=== PATIENT | female | born 1990 | race Caucasian/White ===

== ENCOUNTER 2016-06-30 13:30 | Emergency (ER) | payer MEDICAID ==
[~2016-06-30] VITALS: Ht 165.1 cm; Wt 44.9 kg
[~2016-06-30 13:30] MED LIST: IBUP-1222 PO; ONDA4TAB10 PO; OXYC-302; OXYC-302 PO; PNV1TABL47 PO
[2016-06-30 13:33] VITALS: BP 115/75
[2016-06-30] MEDS ORDERED: KETOROLAC 30 MG/1 ML IM ONE (14:00)
[2016-06-30 14:42] LABS: BLOOD UREA NITROGEN 8 mg/dL (7-18)
[2016-06-30 14:49] LABS: IS PT STATUS REG ER OR PRE ER? YES
== END 2016-06-30 16:49 | disposition left against medical advice (07) ==
LOC: ED 16:43
DX: R00.8 Other abnormalities of heart beat (principal); Z53.21 Procedure and treatment not carried out due to patient leaving prior to being seen by health care provider
CPT/HCPCS: 36415; 71010; 80048; 82040; 84484; 85025; 85379; 93005; 99281

== ENCOUNTER 2016-07-01 19:10 | Inpatient (IN) | payer MEDICAID ==
[~2016-07-01] VITALS: Ht 165.1 cm; Wt 46.7 kg
[2016-07-01] MEDS ORDERED: SODIUM CHLORIDE 0.9% 1,000 ML IV ONE (19:57)
[2016-07-01] MEDS ORDERED: SODIUM CHLORIDE 0.9% 1,000ML IVBOLUS ONE ×2 (20:00→22:00)
[2016-07-01] MEDS ORDERED: MORPHINE SULFATE 4 MG/ML, 1ML IVPush PRN (20:00)
[2016-07-01] MEDS ORDERED: ONDANSETRON 2MG/ML, 2ML IVPush ONE (20:00)
[2016-07-01] MEDS ORDERED: MORPHINE SULFATE 4 MG/ML, 1ML ONE (20:07)
[2016-07-01] MEDS ORDERED: ONDANSETRON 2MG/ML, 2ML ONE (20:07)
[2016-07-01 20:35] LABS: BLOOD UREA NITROGEN 13 mg/dL (7-18)
[2016-07-01] MEDS ORDERED: ACETAMINOPHEN 325 MG TABLET PO ONE (21:00)
[2016-07-01] MEDS ORDERED: KETOROLAC 30 MG/1 ML IVPush ONE (21:00)
[2016-07-01] MEDS ORDERED: KETOROLAC 30 MG/1 ML ONE (21:22)
[2016-07-01] MEDS ORDERED: ACETAMINOPHEN 325 MG TABLET ONE (21:22)
[2016-07-01] MEDS ORDERED: LEVOFLOXACIN/PMX 500MG/100ML 100 ML IV ONE (22:00)
[2016-07-01] MEDS ORDERED: POLYETHYLENE GLYCOL 17 GM PACKET PO PRN (22:00)
[2016-07-01] MEDS ORDERED: morphine SULFATE 10 MG/ML, 1ML IVPush PRN (22:00)
[2016-07-01] MEDS ORDERED: KETOROLAC 30 MG/1 ML IVPush PRN (22:00)
[2016-07-01] MEDS ORDERED: BISACODYL 10 MG SUPP PR PRN (22:00)
[2016-07-01] MEDS ORDERED: ONDANSETRON 2MG/ML, 2ML IVPush PRN (22:00)
[2016-07-01] MEDS ORDERED: LEVOFLOXACIN/PMX 500MG/100ML 100 ML ONE (22:14)
[2016-07-01 22:19] LABS: TOTAL IRON BINDING CAPACITY 544 mcg/dL (250-450)
[2016-07-02] VITALS (10 sets, daily range): BP systolic 86–103; BP diastolic 55–74
[2016-07-02] MEDS: SODIUM CHLORIDE 0.9% 1,000 ML IV SCH ×3 (01:09→23:39)
[2016-07-02] MEDS ORDERED: SODIUM CHLORIDE 0.9%, 500ML IVBOLUS ONE (02:00)
[2016-07-02] MEDS: HEPARIN 5,000 UNITS/ML, 1ML SQ SCH ×3 (04:37→20:49)
[2016-07-02 06:47] LABS: ASPARTATE AMINO TRANSFERASE 9 U/L (15-37); BLOOD UREA NITROGEN 12 mg/dL (7-18)
[2016-07-02] MEDS: SENNA/DOCUSATE TABLET PO SCH (08:41)
[2016-07-02] MEDS: ACETAMINOPHEN 325 MG TABLET PO PRN ×3 (08:41→20:49)
[2016-07-02] MEDS: PRENATAL VIT/IRON/FA 1 EACH TABLET PO SCH (08:41)
[2016-07-02 09:43] LABS: IS PT STATUS REG ER OR PRE ER? NO
[2016-07-02] MEDS ORDERED: SODIUM CHLORIDE 0.9% 1,000ML IVBOLUS ONE (11:30)
[2016-07-02] MEDS ORDERED: POTASSIUM CHLORIDE 20 MEQ in SODIUM CHLORIDE 0.9% 1,000 ML IV SCH (21:58)
[2016-07-02] MEDS: LEVOFLOXACIN/PMX 500MG/100ML 100 ML IV SCH ×2 (23:39)
[2016-07-03 01:47] VITALS: BP 117/64
[2016-07-03] MEDS: HEPARIN 5,000 UNITS/ML, 1ML SQ SCH ×3 (04:50→20:00)
[2016-07-03] MEDS: ACETAMINOPHEN 325 MG TABLET PO PRN (05:04)
[2016-07-03 05:31] LABS: BLOOD UREA NITROGEN 3 mg/dL (7-18)
[2016-07-03 06:45] VITALS: BP 97/58
[2016-07-03] MEDS: POTASSIUM CHLORIDE 20 MEQ TAB.ER.PRT PO SCH ×2 (09:39→18:05)
[2016-07-03] MEDS: PRENATAL VIT/IRON/FA 1 EACH TABLET PO SCH (09:39)
[2016-07-03] MEDS: SENNA/DOCUSATE TABLET PO SCH (09:40)
[2016-07-03] MEDS: SODIUM CHLORIDE 0.9% 1,000 ML IV SCH (09:41)
[2016-07-03 15:08] VITALS: BP 96/81
[2016-07-03 18:56] VITALS: BP 101/65
[2016-07-03] MEDS: LEVOFLOXACIN/PMX 500MG/100ML 100 ML IV SCH (21:46)
[2016-07-03] MEDS ORDERED: SODIUM CHLORIDE 0.9% 1,000 ML IV SCH (21:58)
[2016-07-04 02:03] VITALS: BP 95/52
[2016-07-04] MEDS: HEPARIN 5,000 UNITS/ML, 1ML SQ SCH ×2 (04:00→12:00)
[2016-07-04 06:35] VITALS: BP 92/54
[2016-07-04 06:45] LABS: BLOOD UREA NITROGEN 6 mg/dL (7-18)
[2016-07-04] MEDS: SENNA/DOCUSATE TABLET PO SCH (08:10)
[2016-07-04] MEDS: PRENATAL VIT/IRON/FA 1 EACH TABLET PO SCH (08:10)
[2016-07-04] MEDS ORDERED: LEVOFLOXACIN 750 MG TABLET PO SCH (09:30)
[2016-07-04] MEDS ORDERED: LEVO750T26 PO (11:00)
[2016-07-04] MEDS ORDERED: PREN1TAB14 PO (11:00)
== END 2016-07-04 13:09 | disposition home or self-care (01) | DRG 872 ==
LOC: ED 20:32 → EDIP 21:35 → 3NE 07-02
PROVIDERS: ADMIT Internal Medicine; ATTEND Internal Medicine
DX: A41.9 Sepsis, unspecified organism (principal); E87.1 Hypo-osmolality and hyponatremia; N10 Acute pyelonephritis; Z82.49 Family history of ischemic heart disease and other diseases of the circulatory system; D50.9 Iron deficiency anemia, unspecified; Z88.1 Allergy status to other antibiotic agents
CPT/HCPCS: 36415; 71010; 80048; 80053; 81001; 82040; 82728; 83540; 83550; 83605; 84145; 84484; 84703; 85025; 87040; 87077; 87086; 87186; 93005; 96361; 96374; 96375; J1644; J1885; J1956; J2405; J2270; J7030; J7040

== ENCOUNTER 2016-07-11 06:08 | Emergency (ER) | payer MEDICAID ==
[~2016-07-11] VITALS: Ht 165.1 cm; Wt 44.9 kg
[~2016-07-11 06:08] MED LIST changes: +LEVO750T26 PO; +PREN1TAB14 PO
[2016-07-11] MEDS ORDERED: SODIUM CHLORIDE 0.9% 1,000 ML IV ONE (06:32)
[2016-07-11] MEDS ORDERED: ONDANSETRON 2MG/ML, 2ML ONE (06:36)
[2016-07-11] MEDS ORDERED: FAMOTIDINE 20 MG/2 ML ONE (06:36)
[2016-07-11] MEDS ORDERED: FAMOTIDINE 20 MG/2 ML IVP ONE (07:00)
[2016-07-11] MEDS ORDERED: SODIUM CHLORIDE 0.9% 1,000ML IVBOLUS ONE (07:00)
[2016-07-11] MEDS ORDERED: ONDANSETRON 2MG/ML, 2ML IVPush ONE (07:00)
[2016-07-11 07:26] LABS: ASPARTATE AMINO TRANSFERASE 11 U/L (15-37); BLOOD UREA NITROGEN 14 mg/dL (7-18)
[2016-07-11 08:20] VITALS: BP 102/61
[2016-07-11] MEDS ORDERED: LIDOCAINE 1%, 20ML SQ ONE (09:30)
== END 2016-07-11 09:24 | disposition home or self-care (01) ==
LOC: ED 06:25
DX: K85.90 Acute pancreatitis without necrosis or infection, unspecified (principal)
CPT/HCPCS: 36415; 76700; 80053; 81003; 83605; 83690; 84145; 84703; 85025; 87040; 96374; 96375; 99285; J2405; J7030; S0028

== ENCOUNTER 2016-08-01 17:12 | Emergency (ER) | payer MEDICAID ==
[~2016-08-01] VITALS: Ht 165.1 cm; Wt 45.8 kg
[2016-08-01 18:35] LABS: BLOOD UREA NITROGEN 15 mg/dL (7-18)
[2016-08-01 18:42] LABS: ASPARTATE AMINO TRANSFERASE 16 U/L (15-37)
[2016-08-01 18:44] LABS: IS PT STATUS REG ER OR PRE ER? YES
[2016-08-01 19:27] VITALS: BP 105/54
== END 2016-08-01 19:36 | disposition home or self-care (01) ==
LOC: ED 19:34
DX: J90 Pleural effusion, not elsewhere classified (principal)
CPT/HCPCS: 36415; 71020; 80053; 81003; 83690; 84484; 85025; 85379; 93005; 99285

== ENCOUNTER 2016-08-20 14:43 | Emergency (ER) | payer MEDICAID ==
[~2016-08-20] VITALS: Ht 165.1 cm; Wt 45.9 kg
[2016-08-20 14:44] VITALS: BP 114/61
[2016-08-20 17:50] LABS: HIV 1&2 ANTIBODY SCREEN Nonreactive (Nonreactive); HIV-1 p24 ANTIGEN Nonreactive (Nonreactive)
[2016-08-20 18:43] LABS: HEPATITIS C VIRUS ANTIBODY Nonreactive (Nonreactive)
== END 2016-08-20 17:36 | disposition home or self-care (01) ==
LOC: ED 17:29
DX: Z20.2 Contact with and (suspected) exposure to infections with a predominantly sexual mode of transmission (principal)
CPT/HCPCS: 36415; 80074; 86703; 86790; 87899; 99284; G0435

== ENCOUNTER 2016-08-23 15:17 | Emergency (ER) | payer MEDICAID ==
[~2016-08-23] VITALS: Ht 165.1 cm; Wt 45.0 kg
[2016-08-23 15:25] VITALS: BP 124/61
== END 2016-08-23 16:33 | disposition home or self-care (01) ==
LOC: ED 16:25
DX: Z00.8 Encounter for other general examination (principal)
CPT/HCPCS: 99281

== ENCOUNTER 2016-09-03 15:01 | Emergency (ER) | payer MEDICAID ==
[~2016-09-03] VITALS: Ht 165.1 cm; Wt 44.6 kg
[2016-09-03 15:39] VITALS: BP 111/74
[2016-09-03] MEDS ORDERED: KETOROLAC 30 MG/1 ML ONE (15:50)
[2016-09-03] MEDS ORDERED: KETOROLAC 30 MG/1 ML IM ONE (16:00)
== END 2016-09-03 16:26 | disposition home or self-care (01) ==
LOC: ED 16:08
DX: S29.011A Strain of muscle and tendon of front wall of thorax, initial encounter (principal); X58.XXXA Exposure to other specified factors, initial encounter; Y93.89 Activity, other specified; Y92.098 Other place in other non-institutional residence as the place of occurrence of the external cause; Y99.8 Other external cause status
CPT/HCPCS: 96372; J1885

== ENCOUNTER 2016-09-26 14:55 | Emergency (ER) | payer MEDICAID ==
[~2016-09-26] VITALS: Ht 165.1 cm; Wt 42.0 kg
[2016-09-26] MEDS ORDERED: SODIUM CHLORIDE 0.9% 1,000ML IVBOLUS ONE (15:30)
[2016-09-26] MEDS ORDERED: ONDANSETRON 2MG/ML, 2ML IVPush ONE (15:30)
[2016-09-26] MEDS ORDERED: SODIUM CHLORIDE FLUSH 10ML SYR IVF ONE (15:30)
[2016-09-26] MEDS ORDERED: ONDANSETRON ODT 4 MG ONE (15:44)
[2016-09-26] MEDS ORDERED: ONDANSETRON ODT 4 MG PO ONE (16:00)
[2016-09-26 16:03] LABS: HEMATOCRIT 33.8 % (34.6-47.8); HEMOGLOBIN 11.1 g/dL (11.7-16.4); WHITE BLOOD COUNT 4.6 x10^3/uL (3.4-10)
[2016-09-26 16:15] LABS: BLOOD UREA NITROGEN 8 mg/dL (7-18)
[2016-09-26] MEDS ORDERED: POTASSIUM CHLORIDE 20 MEQ TAB.ER.PRT PO ONE (17:00)
[2016-09-26] MEDS ORDERED: FAMOTIDINE 20 MG TABLET PO ONE (17:00)
[2016-09-26] MEDS ORDERED: MAALOX/HYOSCYAMINE/LIDOCAINE 45 ML BTL PO ONE (17:00)
[2016-09-26 18:00] VITALS: BP 112/70
== END 2016-09-26 18:31 | disposition left against medical advice (07) ==
LOC: ED 15:38
DX: O26.891 Other specified pregnancy related conditions, first trimester (principal); O21.9 Vomiting of pregnancy, unspecified; Z3A.01 Less than 8 weeks gestation of pregnancy
CPT/HCPCS: 36415; 76830; 80048; 81003; 82040; 84702; 84703; 85025; 99285

== ENCOUNTER 2016-10-06 11:54 | Emergency (ER) | payer MEDICAID ==
[~2016-10-06] VITALS: Ht 165.1 cm; Wt 44.1 kg
[2016-10-06 12:44] LABS: HEMATOCRIT 37.6 % (34.6-47.8); HEMOGLOBIN 12.1 g/dL (11.7-16.4); WHITE BLOOD COUNT 7.9 x10^3/uL (3.4-10)
[2016-10-06 12:53] LABS: BLOOD UREA NITROGEN 11 mg/dL (7-18)
[2016-10-06 13:51] VITALS: BP 106/55
== END 2016-10-06 13:52 | disposition home or self-care (01) ==
LOC: ED 12:31
DX: Z32.01 Encounter for pregnancy test, result positive (principal); R10.2 Pelvic and perineal pain
CPT/HCPCS: 36415; 76830; 80048; 81003; 82040; 84702; 85025

== ENCOUNTER 2016-11-05 18:57 | Emergency (ER) | payer MEDICAID ==
[~2016-11-05] VITALS: Ht 160 cm; Wt 45.3 kg
[2016-11-05 19:30] LABS: HEMATOCRIT 35.3 % (34.6-47.8); HEMOGLOBIN 11.3 g/dL (11.7-16.4)
[2016-11-05 21:18] VITALS: BP 119/74
== END 2016-11-05 21:42 | disposition home or self-care (01) ==
LOC: ED 21:01
DX: O23.11 Infections of bladder in pregnancy, first trimester (principal); Z3A.10 10 weeks gestation of pregnancy
CPT/HCPCS: 36415; 76801; 81001; 84702; 85025; 86901; 87086; 99285

== ENCOUNTER 2017-01-26 19:11 | Outpatient (CLI) | payer MEDICAID ==
[~2017-01-26] VITALS: Ht 162.6 cm; Wt 55.0 kg
[~2017-01-26 19:11] MED LIST changes: +PREN1TAB60 PO
[2017-01-26] MEDS ORDERED: LACTATED RINGERS 1,000 ML IV SCH (19:30)
[2017-01-26] MEDS ORDERED: LACTATED RINGERS 1,000 ML IVBOLUS ONE (19:30)
[2017-01-26] MEDS ORDERED: PLEASE ENTER HEIGHT AND WEIGHT MC SCH (20:00)
[2017-01-26] MEDS ORDERED: GUAIFENESIN 100 MG/5 ML, 5ML UDC PO PRN (21:00)
== END 2017-01-26 23:10 | disposition home or self-care (01) ==
LOC: LDOP 19:11
PROVIDERS: ATTEND Obstetrics & Gynecology Maternal & Fetal Medicine
DX: O26.892 Other specified pregnancy related conditions, second trimester (principal); R10.9 Unspecified abdominal pain; R05 Cough; Z3A.19 19 weeks gestation of pregnancy
CPT/HCPCS: 59025; 76815; 96360; 96361; 99211; J7120; G0463

== ENCOUNTER 2018-05-24 14:14 | Emergency (ER) | payer MEDICAID ==
[~2018-05-24] VITALS: Ht 162.6 cm; Wt 41.2 kg
[2018-05-24 14:59] VITALS: BP 111/71
--- NOTE | 2018-05-24 14:59 | NUR ---
NA [id number]
[2018-05-24] MEDS ORDERED: CEFTRIAXONE 250 MG IM ONE (15:30)
[2018-05-24] MEDS ORDERED: ONDANSETRON ODT 4 MG PO ONE (15:30)
--- NOTE | 2018-05-24 19:35 | NUR ---
NO ANSWER [id number]
== END 2018-05-24 19:38 | disposition left against medical advice (07) ==
LOC: ED 19:32
DX: Z20.2 Contact with and (suspected) exposure to infections with a predominantly sexual mode of transmission (principal)
CPT/HCPCS: 99281; 99284

== ENCOUNTER 2019-05-10 10:17 | Emergency (ER) | payer MEDICAID ==
[~2019-05-10] VITALS: Ht 162.6 cm; Wt 46.1 kg
[2019-05-10 10:36] VITALS: BP 121/76
--- NOTE | 2019-05-10 10:52 | NUR ---
PT AMBULATED TO ROOM 23 WITH A STEADY GAIT. SHE IS CHANGING INTO A GOWN FOR MD ASSESSMENT. I WILL MONITOR AND TREAT THIS PT NEEDED WELL PRN.
[2019-05-10] MEDS ORDERED: ALBUTEROL SULFATE 2.5 MG/3 ML NEB ONE (11:08)
[2019-05-10] MEDS ORDERED: ACETAMINOPHEN 500 MG TABLET ONE (11:17)
--- NOTE | 2019-05-10 11:27 | NUR ---
I SPOKE WITH [place] IN RX. I AM ANTICIPTING DELIVERY OF ALBUTEROL MDI.
[2019-05-10] MEDS ORDERED: ACETAMINOPHEN 500 MG TABLET PO ONE (11:30)
[2019-05-10] MEDS ORDERED: ALBUTEROL HFA 90 MCG/SPRAY INH PRN (11:30)
--- NOTE | 2019-05-10 12:14 | NUR ---
PT SELF ADMINISTERED ALBUTEROL W DEMONSTRATION TO ME.
[2019-05-10 12:20] LABS: ALBUMIN 3.8 g/dL (3.4-5.0); ANION GAP 7 mmol/L (5-15); CALCIUM 8.8 mg/dL (8.5-10.1); CHLORIDE 109 mmol/L (98-107); CREATININE 0.75 mg/dL (0.55-1.02)
[2019-05-10 12:30] LABS: MEAN CORPUSCULAR HEMOGLOBIN 22.9 pg (27.0-34.8); MEAN CORPUSCULAR VOLUME 71.7 fL (80-100); PLATELET COUNT 369 x10^3/uL (130-400); RED BLOOD COUNT 5.29 x10^6/uL (3.82-5.3); RED CELL DISTRIBUTION WIDTH 22.4 % (9.6-15.2)
[2019-05-10 12:35] LABS: BASOPHILS # (AUTO) 0.03 x10^3/uL (0-0.1); BASOPHILS % (AUTO) 0 % (0-1); EOSINOPHILS # (AUTO) 1.55 x10^3/uL (0-0.4); EOSINOPHILS % (AUTO) 17 % (1-7); LYMPHOCYTES % (AUTO) 21 % (22-44); MD MORPH REVIEW ONLY; MONOCYTES % (AUTO) 4 % (2-9); NEUTROPHILS # (AUTO) 5.17 x10^3/uL (1.8-6.8); NEUTROPHILS % (AUTO) 57 % (42-75)
[2019-05-10 12:36] LABS: MICROCYTOSIS 1+
[2019-05-10 12:37] LABS: <PLATELET ESTIMATE> ADEQUATE; <PLT MORPHOLOGY> NORMAL PLT MORPH; ANISOCYTOSIS 1+
--- NOTE | 2019-05-10 13:05 | NUR ---
SBAR RPT REC'D FROM CHAITANYA EDDY. PT CARE ASSUMED.
[2019-05-10 13:44] LABS: RAPID INFLUENZA A Negative (Negative); RAPID INFLUENZA B Negative (Negative)
--- NOTE | 2019-05-10 13:58 | NUR ---
Patient/Caregiver given discharge instructions and they have confirmed that they understand the instructions. Patient ambulatory with steady gait. TAXI VOUCHER PROVIDED
== END 2019-05-12 13:05 | disposition home or self-care (01) ==
LOC: ED 10:53
DX: R06.00 Dyspnea, unspecified (principal); Z20.828 Contact with and (suspected) exposure to other viral communicable diseases; J00 Acute nasopharyngitis [common cold]; R07.9 Chest pain, unspecified
CPT/HCPCS: 36415; 71045; 80048; 82040; 83605; 84145; 85025; 87040; 87400; 93005; 99285

== ENCOUNTER 2019-05-12 10:40 | Emergency (ER) | payer MEDICAID ==
[~2019-05-12] VITALS: Ht 162.6 cm; Wt 46.3 kg
--- NOTE | 2019-05-12 11:14 | NUR ---
PT BIB EMS FOR RIGTH SHOULDER PAIN. PT DENIES TRAUMA OR INJURY TO SHOULDER. PT WAS RECENTLY HOSPITALIZED, NEGATIVE COVID. PT HAS COUGH AND CHEST PAIN FROM SHOULDER. PT STATES IT RADIATES TO CHEST , SCAPULA AND RIGHT ARM. PT GIVEN FENTANYL IN ROUTE. AMBULATORY CARE COORDINATOR IN PLACE. VSS
[2019-05-12] MEDS ORDERED: HYDROcodone/APAP 5/325 TABLET ONE (11:23)
[2019-05-12] MEDS ORDERED: HYDROcodone/APAP 5/325 TABLET PO ONE (11:30)
--- NOTE | 2019-05-12 12:00 | NUR ---
medicated for pain. vss. no needs a this time
[2019-05-12 12:01] LABS: BASOPHILS # (AUTO) 0.05 x10^3/uL (0-0.1); BASOPHILS % (AUTO) 1 % (0-1); EOSINOPHILS # (AUTO) 1.36 x10^3/uL (0-0.4); EOSINOPHILS % (AUTO) 17 % (1-7); LYMPHOCYTES # (AUTO) 1.76 x10^3/uL (1-3.4); LYMPHOCYTES % (AUTO) 22 % (22-44); MD NO; MEAN CORPUSCULAR HEMOGLOBIN 22.8 pg (27.0-34.8); MEAN CORPUSCULAR HGB CONC 31.6 g/dL (32.4-35.8); MEAN CORPUSCULAR VOLUME 72.2 fL (80-100); MEAN PLATELET VOLUME 8.4 fL (7.4-10.4); MONOCYTES # (AUTO) 0.39 x10^3/uL (0.2-0.8); MONOCYTES % (AUTO) 5 % (2-9); NEUTROPHILS # (AUTO) 4.59 x10^3/uL (1.8-6.8); NEUTROPHILS % (AUTO) 56 % (42-75); PLATELET COUNT 335 x10^3/uL (130-400); RED BLOOD COUNT 4.89 x10^6/uL (3.82-5.3)
[2019-05-12 12:04] LABS: ALBUMIN 3.9 g/dL (3.4-5.0); ANION GAP 4 mmol/L (5-15); CALCIUM 8.8 mg/dL (8.5-10.1); CHLORIDE 111 mmol/L (98-107); CREATININE 0.72 mg/dL (0.55-1.02)
[2019-05-12] MEDS ORDERED: ONDANSETRON ODT 4 MG ONE (12:29)
[2019-05-12] MEDS ORDERED: ONDANSETRON ODT 4 MG PO ONE (12:30)
--- NOTE | 2019-05-12 12:38 | NUR ---
Patient/Caregiver given discharge instructions and they have confirmed that they understand the instructions. Patient ambulatory with steady gait.
[2019-05-12 12:39] VITALS: BP 110/78
--- NOTE | 2019-05-12 13:05 | NUR ---
PT IS RESIDENT AT [facility], RESIDENT NURSE SHERI ORTEGA WILL NOT ACCEPT HER BACK BECAUSE OF COVID CONCERN EVEN THOUGH PT TESTED NEGATIVE. [employer]S TENNIS COACH CALLED
--- NOTE | 2019-05-12 15:33 | NUR ---
Patient given discharge instructions and they have confirmed that they understand the instructions. Patient ambulatory with steady gait and in no distress.
--- NOTE | 2019-05-12 15:33 | NUR ---
Taxi voucher given to patient for safe ride back home.
== END 2019-05-12 12:58 | disposition home or self-care (01) ==
LOC: ED 10:42
DX: R07.89 Other chest pain (principal); M25.511 Pain in right shoulder
CPT/HCPCS: 36415; 71045; 80048; 82040; 85025; 85379; 99284; Q0162

== ENCOUNTER 2020-06-19 09:45 | Emergency (ER) | payer MEDICAID ==
[~2020-06-19] VITALS: Ht 162.6 cm; Wt 46.3 kg
[~2020-06-19 09:45] MED LIST changes: -OXYC-302; -OXYC-302 PO; +OXYC1TAB14; +OXYC1TAB14 PO
[2020-06-19] MEDS ORDERED: ALBU90AE INH (10:11)
--- NOTE | 2020-06-19 10:11 | NUR ---
ASTHMA EXACERBATION X 2 WEEKS. SOB AT REST. PERSISTENT DRY COUGH. PROAIR NOT HELPING NO FEVERS/ACHES/CHANGE IN TASTE/SMELL VSS- HOWEVER WITH WHEEZES TO ALL MCDONOUGH
--- NOTE | 2020-06-19 10:43 | NUR ---
DR NG AT BEDSIDE TO EVAL PT
[2020-06-19] MEDS ORDERED: ALBUTEROL/IPRATROPIUM 2.5MG/0.5MG, 3 ML NPPB SCH (11:00)
[2020-06-19] MEDS ORDERED: ALBUTEROL/IPRATROPIUM 2.5MG/0.5MG, 3 ML ONE ×2 (11:19→11:50)
[2020-06-19 11:20] LABS: BASOPHILS % (AUTO) 1 % (0-1); EOSINOPHILS % (AUTO) 17 % (1-7); LYMPHOCYTES % (AUTO) 17 % (22-44); MD NO; MEAN CORPUSCULAR HEMOGLOBIN 24.1 pg (27.0-34.8); MEAN CORPUSCULAR HGB CONC 31.8 g/dL (32.4-35.8); MEAN PLATELET VOLUME 7.7 fL (7.4-10.4); MONOCYTES % (AUTO) 5 % (2-9); NEUTROPHILS % (AUTO) 61 % (42-75); PLATELET COUNT 284 x10^3/uL (130-400); RED BLOOD COUNT 4.94 x10^6/uL (3.82-5.3)
--- NOTE | 2020-06-19 11:26 | NUR ---
PT UPDATED ON POC. UNDERSTANDING VERBALIZED. PT TO RECEIVE RT TX AND MEDS.
[2020-06-19 11:27] LABS: ALBUMIN 3.8 g/dL (3.4-5.0); ANION GAP 5 mmol/L (5-15); CALCIUM 8.5 mg/dL (8.5-10.1); CHLORIDE 109 mmol/L (98-107)
--- NOTE | 2020-06-19 11:29 | NUR ---
TASK RN: MEDICATED PITA PO PREDNISONE/MELECIO TX. PHARMACY TO DISPENSE COPDEINE SHORTLY
[2020-06-19 11:30] LABS: CREATININE 0.58 mg/dL (0.55-1.02)
[2020-06-19] MEDS ORDERED: PROMETHAZINE/COD. 10MG/6.25MG/5 ML ORAL SOL PO ONE (11:30)
--- NOTE | 2020-06-19 11:30 | NUR ---
PROVIDER TO BEDSIDE-SWABBED FOR COVID PER GUIDELINES
--- NOTE | 2020-06-19 11:41 | NUR ---
NEBULIZER COMPLETE- SOB MARGINALLY IMPROVED MEDICATED WITH PENDING MEDS PRIMARY RN UPDATED
--- NOTE | 2020-06-19 12:03 | NUR ---
PT TO RECEIVE 2ND DOSE OF DUO NEB, THEN RECHECK BY
--- NOTE | 2020-06-19 12:08 | NUR ---
Break RN: Clarified 2nd neb dose with MD Stuart, stated to hold at this time. Pt RA stat 94%
[2020-06-19 12:31] VITALS: BP 118/65
--- NOTE | 2020-06-19 12:40 | NUR ---
CARE REASSUMED. PT SITTING UP ON GURNEY, NO ACUTE DISTRESS NOTED. AWAITING MD RECHECK.
--- NOTE | 2020-06-19 13:24 | NUR ---
DR NG AT BEDSIDE TO RE-EVAL PT. PT WITH DECREASED COUGHING, STATES "I FEEL BETTER" PT TO BE DC'D. PT GETTING DRESSED
--- NOTE | 2020-06-19 13:36 | NUR ---
NO IV TO DC. REVIEWED DC INSTRUCTIONS WITH PT. UNDERSTANDING VERBALIZED. PT LEFT AMB, GAIT STEADY.
== END 2020-06-19 13:38 | disposition home or self-care (01) ==
LOC: ED 13:27
DX: J45.41 Moderate persistent asthma with (acute) exacerbation (principal); Z20.822 Contact with and (suspected) exposure to COVID-19; R06.02 Shortness of breath; Z87.891 Personal history of nicotine dependence
CPT/HCPCS: 36415; 71045; 80048; 82040; 83605; 85025; 93005; 94640; 99285; J7512; U0003; U0005